=== PATIENT | female | born 1985 | race Caucasian/White ===

== ENCOUNTER 2025-04-27 16:57 | Emergency (ER) | payer MEDICAID, SELFPAY ==
[2025-04-27] VITALS (10 sets, daily range): BP systolic 104–141; BP diastolic 62–102; PULSE 85–102; RESP 12–24; TEMP 36.6–37; O2SAT 96–100; BMI 32.8
--- NOTE | 2025-04-27 17:41 | XR_ITS ---
Examination: CT abdomen with intravenous contrast CT pelvis with intravenous contrast 2-D coronal reconstructions 2-D sagittal reconstructions Date and time of exam:April 27, 20252054 hours INDICATIONS: Abdominal pain nausea vomiting today. CTDI: vol (mGy) 10.9 DLP: (mGycm) 61 Technique: Multiple axial sections of the abdomen and pelvis have been obtained. 64 slice high-resolution scanner used. 3 mm axial sections have been obtained, post intravenous injection of 370 60 cc 2-D sagittal coronal reconstructions Low-dose protocols, iodinated exposure control, adjustment MA be according to patient's size FINDINGS: No pericecal inflammatory change Gastric sutures No liver or splenic lesion Mucosa is thickened in the stomach No pancreatic mass No renal or ureteral calculi, no hydronephrosis Aorta normal size No bowel obstruction No diverticulitis No pelvic mass Contracted urinary bladder Moderate disc narrowing L5-S1 IMPRESSION: Gastritis pattern
[2025-04-27] MEDS: ONDANSETRON INJ 2 MG/ML INJ 2 ML 4 MG IVP (18:06)
[2025-04-27] MEDS: MORPHINE SULF INJ 10 MG/ML VIAL 4 MG IVP (18:07)
[2025-04-27] MEDS: SODIUM CHLORIDE 0.9% 1000 ML 1,000 ML 999 ML IV ×2 (18:09→21:12)
--- NOTE | 2025-04-27 18:46 | PC.NURSE ---
SPOKE TO PHARMACIST REQUESTING FOR PT'S PROMETHAZINE MED ORDER; PER PHARMACY, WILL RECONSTITUTE MEDICATION AND DELIVER IT SOON.''
[2025-04-27 18:53] LABS: Basophils % (Auto) 1 % (0-2.5); Eosinophils % (Auto) 0 % (0-10); Hemoglobin 13.5 g/dL (12.0-16.0); Immature Granulocytes % (Auto) 0 % (0-0); Immature Granulocytes Auto 0.01 Thou/mm3 (0.00-0.00); Lymphocytes # (Auto) 1.3 Thou/mm3 (1.0-4.8); Lymphocytes % (Auto) 17 % (10-50); Mean Corpuscular HGB Conc 35.5 g/dl (31.0-37.0); Mean Corpuscular Hemoglobin 28.4 pg (25.0-35.0); Mean Corpuscular Volume 80 fL (80-100); Monocytes # (Auto) 0.5 Thou/mm3 (0.0-0.8); Monocytes % (Auto) 6 % (0-12); Neutrophils # (Auto) 5.8 Thou/mm3 (1.8-7.7); Neutrophils % (Auto) 76 % (37-80); Nucleated Red Blood Cell % 0 /100 WBC (0); Platelet Count 231 Thou/mm3 (140-440); RDW Standard Deviation 38.1 fL (36.4-46.3); Red Blood Count 4.75 Miln/mm3 (4.00-5.20); White Blood Count 7.6 Thou/mm3 (3.6-11.0)
[2025-04-27 18:59] LABS: Prothrombin Time 11.4 Seconds (9.0-12.2)
[2025-04-27 19:03] LABS: Alanine Aminotransferase 16 U/L (10-49); Albumin, Serum 4.3 gm/dL (3.5-5.0); Albumin/Globulin Ratio 1.7 (1.2-2.2); Alkaline Phosphatase 84 U/L (46-116); Anion Gap 17 (7-16); BUN/Creatinine Ratio 9 Ratio (12-20); Bilirubin,Total 0.9 mg/dL (0.3-1.2); Blood Urea Nitrogen 7 mg/dL (9-23); Calcium 9.3 mg/dL (8.3-10.6); Calcium (Corrected) 9.3 mg/dL (8.5-10.1); Carbon Dioxide 21.1 mMol/L (20.0-31.0); Chloride 104 mMol/L (98-107); Creatinine (Component) 0.8 mg/dL (0.6-1.3); Estimated Creatinine Clearance 106.3 mL/min (>60); Globulin 2.5 gm/dL (2.3-3.5); Glucose 91 mg/dL (74-106); Lipase 32 U/L (12-53); Magnesium 1.9 mg/dL (1.6-2.6); Osmolality,Calculated 281 (275-295); Potassium 4.2 mMol/L (3.4-5.1); Sodium 142 mMol/L (136-145); Total Protein 6.8 gm/dL (5.7-8.2); eGFR > 60 See Note
[2025-04-27] MEDS: PROMETHAZINE INJ 12.5 MG in SODIUM CHLORIDE 0.9% 50 ML 2.5 MG IV (19:13)
[2025-04-27 19:18] LABS: HCG,Qualitative Serum Negative
[2025-04-27 21:06] LABS: Collection Type, Urine Clean Catch
[2025-04-27] MEDS: MORPHINE SULF INJ 10 MG/ML VIAL 5 MG IVP (21:11)
[2025-04-27 21:17] LABS: Bacteria,Urine Rare; Bilirubin,Urine Negative (Negative); Blood,Urine 3+ (Negative); Clarity,Urine Turbid (Clear/Hazy); Color,Urine Yellow (Lt Yel-Yel); Glucose, Urine Negative (Negative); Ketones,Urine 4+ (Negative); Leukocyte Esterase,Urine Positive (Negative); Nitrite,Urine Negative (Negative); PH,Urine 5.5 (5.0-7.0); Protein,Urine 1+ (Neg - Trace); RBC,Urine 4 /hpf (0-3); Specific Gravity,Urine 1.022 (1.001-1.035); Squamous Epithelial Cell,Urine 18 /hpf (0-5); Urobilinogen,Urine Negative mg/dL (0.0-1.0); WBC,Urine 56 /hpf (0-5)
[2025-04-27 22:12] LABS: Amphetamine/Methamp Scrn,U Negative (Negative); Barbiturate Screen,Urine Negative (Negative); Benzodiazepines Screen,Urine Negative (Negative); Benzoylecgonine Screen, Ur Negative (Negative); Fentanyl Screen,Urine Negative (Negative); Opiate Screen,Urine Positive (Negative); THC Screen,Urine Negative (Negative)
--- NOTE | 2025-04-27 22:18 | PD.EDABDPN ---
ED Abdominal Pain RME/HPI General Chief Complaint: Abdominal Pain Stated complaint: NAUSEA AND VOMITTING Time seen by provider: 04/27/25 17:49 Arrival date/time: 04/27/25 16:57 RME / HPI RME / HPI narrative: Dr. [facility] Main ED Evaluation: 39yp female with no significant past medical history presents to the ED for complaints of nausea and vomiting. Patient states she started having significant N/V this morning, reporting she has been unable to keep anything down all day. Patient denies any abdominal pain, fever, chills, dysuria or any other associated symptoms. NKA. Related Data Home Medications ?Medication ?Instructions ?Recorded ?Confirmed sertraline 100 mg tablet (Zoloft) 100 mg PO QAM #0 tabs 07/16/17 Previous Rx's ?Medication ?Instructions ?Recorded Hydrocodone/Acetaminophen * (NORCO 1 tab PO Q6H PRN PAIN #12 tabs 07/16/17 5/325 *) omeprazole 40 mg capsule,delayed 40 mg PO QDAY #30 caps 04/27/25 release ondansetron 4 mg disintegrating 4 mg PO Q8H PRN nausea and 04/27/25 tablet vomiting #14 tabs sucralfate 100 mg/mL oral 10 ml PO TID #200 mL 04/27/25 suspension (Carafate) Allergies Allergy/AdvReac Type Severity Reaction Status Date / Time NKA* Allergy Uncoded 04/27/25 17:21 Review of Systems Review of Systems Systems Reviewed: All systems reviewed, normal except as documented Past Medical History Past Medical History CARDIAC: Negative Cardiac Disorders, Hypercholesterolemia, Congestive Heart Failure or Hypertension RESPIRATORY: Negative Chronic Obstructive Pulmonary Disease (COPD) or Asthma GENITOURINARY: Negative Renal Disease ENDOCRINE: Negative Diabetes Mellitus Type 1 or Diabetes Mellitus Type 2 HEMATOLOGIC: Negative Sickle Cell Disease PSYCHO/SOCIAL: Positive Anxiety Family History FAMILY HISTORY: Positive Family Cancer (PT'S MOM SKIN CANCER) Surgical History SURGICAL: Positive Tubal Ligation Social History SMOKING STATUS: Never smoker ED Exam Narrative Physical exam: GENERAL APPEARANCE: alert and oriented x 4, well-developed, well-nourished, no acute distress VITALS: All vitals were reviewed and the pulse ox is 99% on room air, which is normal according to my interpretation. HEENT: Normocephalic, atraumatic; pupils equal, round, reactive to light; EOMI; mucous membranes pink, dry; oropharynx clear NECK: Supple LUNGS: CTABL; no wheezes, no rales, no rhonchi HEART: Regular rate, regular rhythm; normal S1, S2; no murmurs ABDOMEN: non distended; normal BS; soft, LUQ tenderness, no guarding, no rebound; no masses, no organomegaly, no hernia BACK: no CVA tenderness EXTREMITIES: atraumatic; no edema NEUROLOGIC: awake; alert and oriented x4; cranial nerves II-XII grossly intact; no focal sensory or motor deficits PSYCHIATRIC: appropriate mood and affect SKIN: warm, dry, normal color; no rashes Course Quality Measures none Orders Category Date Time Status CT Screening NOW Care 04/27/25 17:41 Active Mixer And Blender STAT Care 04/27/25 17:40 Active Continuous Pulse Oximetry STAT Care 04/27/25 17:40 Completed Insert IV STAT Care 04/27/25 17:40 Active NPO STAT Care 04/27/25 17:[address] abdomen pelvis w con Stat Exams 04/27/25 17:41 Completed CBC Stat Lab 04/27/25 18:12 Completed Comprehensive Metabolic Panel Stat Lab 04/27/25 18:12 Completed Drug Screen,Urine Stat Lab 04/27/25 20:55 Completed HCG,Qualitative Serum Stat Lab 04/27/25 18:12 Completed Lipase Stat Lab 04/27/25 18:12 Completed Magnesium Stat Lab 04/27/25 18:12 Completed Prothrombin Time with INR Stat Lab 04/27/25 18:12 Completed Urinalysis Stat Lab 04/27/25 20:55 Completed Lidocaine 2% Viscous [Xylocaine 2% Viscous] Med 04/27/25 22:19 Discontinued 15 ml PO X1 ONE Metoclopramide Inj [Reglan Inj] Med 04/27/25 22:18 Discontinued 10 mg IVP X1 ONE Morphine Inj Med 04/27/25 17:40 Discontinued 4 mg IVP X1 ONE Morphine Inj Med 04/27/25 20:51 Discontinued 5 mg IVP X1 ONE Ondansetron Inj [Zofran Inj] Med 04/27/25 17:40 Active 4 mg IVP Q1H PRN Pantoprazole Inj [Protonix Inj] Med 04/27/25 22:18 Discontinued 40 mg IVP X1 ONE Promethazine Inj [Phenergan Inj] 12.5 mg Med 04/27/25 18:39 Discontinued Sodium Chloride 0.9% [Ns] 50 ml IV X1 Sodium Chloride 0.9% 1000 ml [Ns] 1,000 ml Med 04/27/25 17:40 Discontinued IV 999 mls/hr Sodium Chloride 0.9% 1000 ml [Ns] 1,000 ml Med 04/27/25 20:50 Discontinued IV 999 mls/hr Sucralfate Susp [Carafate Susp] Med 04/27/25 22:19 Discontinued 1 gm PO X1 ONE mg Hyd/Al Hyd/Jacquelin Susp [Maalox Susp] Med 04/27/25 22:19 Discontinued 30 ml PO X1 ONE Reevaluation(s) Reevaluation #1: Patient states she feels significantly better after receiving meds. Patient notes she takes omeprazole 20mg daily. Patient is stable to be discharged home. Time: 23:20 Vital Signs Vital signs: Vital Signs Temperature 97.9 F 04/27/25 17:04 Pulse Rate 101 H 04/27/25 17:04 Respiratory Rate 18 04/27/25 17:04 Blood Pressure 138/85 H 04/27/25 17:04 Pulse Oximetry (%) 100 04/27/25 17:04 Oxygen Delivery Method Room Air 04/27/25 17:04 Abdominal Pain MDM Patient data External records reviewed:: [facility] previous records (Per chart review, patient has no previous ED visits or admissions to this facility.) Clinical information provided by:: patient Social determinants that could affect healthcare access:: none Patient has the following chronic illnesses:: none How is presenting disease/condition affected by chronic disease/condition?: no chronic disease Evaluation data The following diagnostics were reviewed and interpreted by me:: lab results and radiology exam(s) Lab and/or radiology exams considered but not ordered:: none Interpretation Summary: CBC normal, Anion Gap 17, Lipase normal, HCG negative, UDS positive for opiates, UA negative for UTI. [facility] Report Signed Patient: BONNIE SEVERINO [facility]. Record#: [id number] Birthdate: 1985 Age/Sex: 39 / F Location: [facility] Attending Dr: Ordering Physician: Maynor Epstein MD Date of Service: 04/27/25 Procedure(s): CT abdomen pelvis w con Accession Number(s): [id number] cc: Maynor Epstein MD; Tato Brennan MD; NO PRIMARY/FAMILY,PHYSICIAN~ Examination: CT abdomen with intravenous contrast CT pelvis with intravenous contrast 2-D coronal reconstructions 2-D sagittal reconstructions Date and time of exam:April 27, 20252054 hours INDICATIONS: Abdominal pain nausea vomiting today. CTDI: vol (mGy) 10.9 DLP: (mGycm) 61 Technique: Multiple axial sections of the abdomen and pelvis have been obtained. 64 slice high-resolution scanner used. 3 mm axial sections have been obtained, post intravenous injection of 370 60 cc 2-D sagittal coronal reconstructions Low-dose protocols, iodinated exposure control, adjustment MA be according to patient's size FINDINGS: No pericecal inflammatory change Gastric sutures No liver or splenic lesion Mucosa is thickened in the stomach No pancreatic mass No renal or ureteral calculi, no hydronephrosis Aorta normal size No bowel obstruction No diverticulitis No pelvic mass Contracted urinary bladder Moderate disc narrowing L5-S1 IMPRESSION: Gastritis pattern Dictated By: Tato Brennan MD Signed By: <Electronically signed by Tato Brennan MD in [place]> 04/27/252121 Medications / Prescriptions Medications or Prescriptions considered but not ordered:: none Medication administrations:: Medication Administration History Ondansetron HCl (Ondansetron Inj 2 Mg/Ml Inj 2 Ml) 4 mg IVP Q1H PRN PRN Reason: PERSISTENT NAUSEA OR VOMITING Last Admin: 04/27/25 18:06 Dose: 4 mg Documented By: KINGSTON Discontinued Medications Al Hydrox/Mg Hydrox/Simethicone (Mg Hyd/Al Hyd/Jacquelin (Maalox Reg) Susp 30 Ml Udc) 30 ml PO X1 ONE Stop: 04/27/25 22:20 Last Admin: 04/27/25 22:45 Dose: 30 ml Documented By: BURKE Sodium Chloride (Ns) 1,000 mls @ 999 mls/hr IV .Q1H1M ONE Stop: 04/27/25 18:40 Last Infusion: 04/27/25 18:55 Dose: Infused Documented By: Admin: 04/27/25 18:09 Dose: 999 mls/hr Documented By: KINGSTON Promethazine HCl 12.5 mg/ (Sodium Chloride) 50.5 mls @ 2.5 mls/min IV X1 ONE Stop: 04/27/25 18:59 Last Infusion: 04/27/25 20:35 Dose: Infused Documented By: Admin: 04/27/25 19:13 Dose: 2.5 mls/min Documented By: BURKE Sodium Chloride (Ns) 1,000 mls @ 999 mls/hr IV .Q1H1M ONE Stop: 04/27/25 21:50 Last Infusion: 04/27/25 22:29 Dose: Infused Documented By: Admin: 04/27/25 21:12 Dose: 999 mls/hr Documented By: BURKE Lidocaine HCl (Lidocaine Viscous 2% 15 Ml Udc) 15 ml PO X1 ONE Stop: 04/27/25 22:20 Last Admin: 04/27/25 22:45 Dose: 15 ml Documented By: BURKE Metoclopramide HCl (Metoclopramide Inj 5 Mg/Ml Vial 2 Ml) 10 mg IVP X1 ONE; Protocol Stop: 04/27/25 22:19 Last Admin: 04/27/25 22:46 Dose: 10 mg Documented By: BURKE Morphine Sulfate (Morphine Sulf Inj 10 Mg/Ml Vial) 4 mg IVP X1 ONE Stop: 04/27/25 19:40 Last Admin: 04/27/25 18:07 Dose: 4 mg Documented By: KINGSTON Morphine Sulfate (Morphine Sulf Inj 10 Mg/Ml Vial) 5 mg IVP X1 ONE Stop: 04/27/25 20:52 Last Admin: 04/27/25 21:11 Dose: 5 mg Documented By: BURKE Pantoprazole Sodium (Pantoprazole Inj 40 Mg Vial) 40 mg IVP X1 ONE Stop: 04/27/25 22:19 Last Admin: 04/27/25 22:45 Dose: 40 mg Documented By: BURKE Sucralfate (Sucralfate Susp 1 Gm/10 Ml Udc) 1 gm PO X1 ONE Stop: 04/27/25 22:20 see above Consultations Consultation(s) initiated? (list below): No Diagnosis Differential diagnosis abdominal pain: acute appendicitis, gastroenteritis, pancreatitis and other (gastritis) Most likely diagnosis given after review of the tests above:: see clinical impression below Admission Indicated Admission indicated?: not indicated Admission Request Was there a request for admission?: No Disposition Plan Disposition Plan: Discharge Discharge Attestation Discharge Attestation: The patient and all family members were given an opportunity to ask questions and understood the discharge instructions. Discharge instructions specifically effects, indications for sooner follow up or return to the emergency department, and the expected course of current diagnosis. Patient condition: Stable Discharge Plan Plan Patient Disposition: HOME (Self Care) Prescriptions/Referrals Prescriptions/Med Rec: New sucralfate [Carafate] 100 mg/mL suspension 10 ml PO TID Qty: 200 0RF omeprazole 40 mg capsule,delayed release(DR/EC) 40 mg PO QDAY Qty: 30 0RF ondansetron 4 mg tablet,disintegrating 4 mg PO Q8H PRN (Reason: nausea and vomiting) Qty: 14 0RF No Action sertraline [Zoloft] 100 MG tablet 100 mg PO QAM Qty: 0 Hydrocodone/Acetaminophen * (NORCO 5/325 *) 1 TAB tablet 1 tab PO Q6H PRN (Reason: PAIN) Qty: 12 0RF Referrals: No Primary/Family,Physician [Primary Care Provider] - In 1 week Problem List Clinical Impression: Gastritis Patient/Caregiver Discharge Instructions Education Materials: ED Gastritis (Adult) Additional Instructions: Increase omeprazole to 40 mg daily Print Language: Japanese Stand Alone Forms: [facility] Award Info., Patient Portal Info Letter
[2025-04-27] MEDS: LIDOCAINE VISCOUS 2% 15 ML UDC PO (22:45)
[2025-04-27] MEDS: MG HYD/AL HYD/SIME (Maalox Reg) SUSP 30 ML UDC PO (22:45)
[2025-04-27] MEDS: PANTOPRAZOLE INJ 40 MG VIAL IVP (22:45)
[2025-04-27] MEDS: METOCLOPRAMIDE INJ 5 MG/ML VIAL 2 ML 10 MG IVP (22:46)
--- NOTE | 2025-04-27 23:27 | PC.NURSE ---
around 2029, cleaned pt. diaper was saturated with urine. pt cleanded.
--- NOTE | 2025-04-27 23:45 | PC.NURSE ---
GI coctail took pain away. pt feeling much better. nausea has improved greatly.
== END 2025-04-27 23:48 | disposition home or self-care (01) ==
PROVIDERS: Family Medicine; Emergency Provider Emergency Medicine
DX: K29.70 Gastritis, unspecified, without bleeding (principal)
CPT/HCPCS: 36415; 74177; 80053; 80307; 81001; 83690; 83735; 84703; 85025; 85610; 96361; 96365; 96375; 96376; 99285; A4649; J2270; J2405; J2470; J2550; J2765; J3490; J7030; Q9967; A9270

== ENCOUNTER 2025-06-09 13:39 | Emergency (ER) | payer MEDICAID, SELFPAY ==
[2025-06-09 14:20] VITALS: BP 137/89; PULSE 90; RESP 20; TEMP 36.7; O2SAT 98
--- NOTE | 2025-06-09 14:35 | XR_ITS ---
Examination: CT abdomen with intravenous contrast CT pelvis with intravenous contrast 2-D coronal reconstructions 2-D sagittal reconstructions Date and time of exam:June 09, 2025 1926 hours Comparison April 27, 2025 INDICATION: Abdominal pain and vomiting beginning 2 days ago. CTDI: vol (mGy) 20 355 DLP: (mGycm) 744 Technique: Multiple axial sections of the abdomen and pelvis have been obtained. 64 slice high-resolution scanner used. 3 mm axial sections have been obtained, post intravenous injection 60 cc Isovue 370 2-D sagittal, coronal reconstructions obtained. Low dose protocols were performed. One or more of the following dose reduction techniques were used; automated exposure control, adjustment of the mA and/or KV according to patient size, use of iterative reconstruction technique. Findings: No focal liver or splenic lesions Gastric sutures No pancreatic or adrenal mass 8mm benign posterior right renal angiomyolipoma Aorta normal size No bowel obstruction No bladder mass or bladder calculi The osseous structures are intact IMPRESSION: No acute process in the abdomen or pelvis
--- NOTE | 2025-06-09 14:38 | PD.EDABDPN ---
ED Abdominal Pain RME/HPI General Chief Complaint: Abdominal Pain Stated complaint: ABD PAIN, SEVERE N/V, UNABLE TO KEEP FOOD DOWN Time seen by provider: 06/09/25 14:40 Arrival date/time: 06/09/25 13:39 Limitations: no limitations RME / HPI RME / HPI narrative: 1 day history of nausea, vomiting, and abdominal pain. Seen here about 1 month ago for similar symptoms. She has no fevers or chills. Denies any new sick contacts. No recent antibiotic use. She has no urinary symptoms. She denies any chronic disease including diabetes. She has no other acute complaints. Related Data Home Medications ?Medication ?Instructions ?Recorded ?Confirmed sertraline 100 mg tablet (Zoloft) 100 mg PO QAM #0 tabs 07/16/17 Previous Rx's ?Medication ?Instructions ?Recorded Hydrocodone/Acetaminophen * (NORCO 1 tab PO Q6H PRN PAIN #12 tabs 07/16/17 5/325 *) omeprazole 40 mg capsule,delayed 40 mg PO QDAY #30 caps 04/27/25 release ondansetron 4 mg disintegrating 4 mg PO Q8H PRN nausea and 04/27/25 tablet vomiting #14 tabs sucralfate 100 mg/mL oral 10 ml PO TID #200 mL 04/27/25 suspension (Carafate) dicyclomine 20 mg tablet 20 mg PO TID #20 tabs 06/09/25 ondansetron 4 mg disintegrating 4 mg PO QDAY PRN nausea and 06/09/25 tablet vomiting 3 days #10 tabs Allergies Allergy/AdvReac Type Severity Reaction Status Date / Time No Known Allergies Allergy Verified 06/09/25 13:43 Review of Systems Review of Systems Systems Reviewed: All systems reviewed, normal except as documented ED Exam General Limitations: Present no limitations General appearance: Present alert Head Head exam: Present atraumatic Eye Eye exam: Present normal appearance, PERRL and EOMI ENT ENT exam: Present normal exam, normal oropharynx and mucous membranes moist Neck Neck exam: Present normal inspection, full ROM and trachea midline Chest Chest inspection: Present normal inspection and symmetric chest wall rise Respiratory Respiratory exam: Present normal lung sounds bilaterally Cardiovascular Cardiovascular exam: Present regular rate, normal rhythm and normal heart sounds Abdominal Exam Abdominal exam: Present distention; Absent tenderness, guarding, rebound or rigidity Extremities Exam Extremities exam: Present normal inspection and full ROM Back Exam Back exam: Present normal inspection and full ROM Neurological Exam Neurological exam: Present alert, oriented X3 and CN II-XII intact Psychiatric Psychiatric exam: Present normal affect and normal mood Skin Skin exam: Present warm, dry, intact and normal color Course Quality Measures none Orders Category Date Time Status CT Screening NOW Care 06/09/25 14:[address] abdomen pelvis w con Stat Exams 06/09/25 14:35 Completed CBC Stat Lab 06/09/25 14:48 Completed CMP [Comprehensive Metabolic Panel] Stat Lab 06/09/25 14:48 Completed HCG,Qualitative Serum Stat Lab 06/09/25 14:48 Completed Lactic Acid [Lactate (Lactic Acid)] Stat Lab 06/09/25 14:48 Completed Lipase Stat Lab 06/09/25 14:48 Completed UA, C/S IF [Urinalysis, C/S if Indicated] Stat Lab 06/09/25 15:30 Completed Metoclopramide Inj [Reglan Inj] Med 06/09/25 14:35 Discontinued 10 mg IVP X1 ONE Metoclopramide Inj [Reglan Inj] Med 06/09/25 21:19 Once 10 mg IVP X1 ONE Pantoprazole Inj [Protonix Inj] Med 06/09/25 14:37 Discontinued 40 mg IVP X1 ONE Sodium Chloride 0.9% 1000 ml [Ns] 1,000 ml Med 06/09/25 14:35 Discontinued IV 999 mls/hr fentaNYL INJ [Sublimaze Inj] Med 06/09/25 14:37 Discontinued 25 mcg IVP X1 ONE Vital Signs Vital signs: Vital Signs Temperature 98.1 F 06/09/25 14:20 Pulse Rate 90 06/09/25 14:20 Respiratory Rate 20 06/09/25 14:20 Blood Pressure 137/89 H 06/09/25 14:20 Pulse Oximetry (%) 98 06/09/25 14:20 Oxygen Delivery Method Room Air 06/09/25 14:20 Abdominal Pain MDM MDM Narrative MDM Narrative:: 1 day history of nausea, vomiting, and abdominal pain. Seen here about 1 month ago for similar symptoms. She has no fevers or chills. Denies any new sick contacts. No recent antibiotic use. She has no urinary symptoms. She denies any chronic disease including diabetes. She has no other acute complaints. On exam, patient is nontoxic-appearing and in no visible signs of distress. She initially received a dose of Reglan, IV fluids, and workup was initiated. She has a very mild leukocytosis of 12.4 K, hemoglobin hematocrit are stable. Her liver enzymes are unremarkable. Lipase is unremarkable. UA is unremarkable. CT abdomen pelvis reveals no acute intra-abdominal abnormalities. Patient states that her symptoms have improved, she has had no emesis during ER course however at the time of discharge, she states her nausea was starting to return. She will be given a dose of Reglan again. She will be discharged with a prescription of Zofran and Bentyl. She has to follow-up with her primary doctor. Return here as needed for any worsening or emergent changes. Patient data External records reviewed:: None Clinical information provided by:: patient Social determinants that could affect healthcare access:: none Patient has the following chronic illnesses:: n/a How is presenting disease/condition affected by chronic disease/condition?: uneffected by Evaluation data The following diagnostics were reviewed and interpreted by me:: lab results (No significant leukocytosis or anemia. No evidence of hepatitis or pancreatitis.) and radiology exam(s) (CT of abdomen pelvis reveals no acute intra-abdominal abnormality.) Lab and/or radiology exams considered but not ordered:: n/a Interpretation Summary: Acute gastroenteritis Medications / Prescriptions Medications or Prescriptions considered but not ordered:: n/a Medication administrations:: Medication Administration History Discontinued Medications Fentanyl Citrate (Fentanyl Cit Inj 50 Mcg/Ml Amp 2ml) 25 mcg IVP X1 ONE Stop: 06/09/25 14:38 Last Admin: 06/09/25 18:57 Dose: 25 mcg Documented By: KRISTIN Sodium Chloride (Ns) 1,000 mls @ 999 mls/hr IV .Q1H1M ONE Stop: 06/09/25 15:35 Last Infusion: 06/09/25 20:21 Dose: Infused Documented By: Admin: 06/09/25 18:58 Dose: 999 mls/hr Documented By: KRISTIN Metoclopramide HCl (Metoclopramide Inj 5 Mg/Ml Vial 2 Ml) 10 mg IVP X1 ONE; Protocol Stop: 06/09/25 14:36 Last Admin: 06/09/25 18:57 Dose: 10 mg Documented By: KRISTIN Pantoprazole Sodium (Pantoprazole Inj 40 Mg Vial) 40 mg IVP X1 ONE Stop: 06/09/25 14:38 Last Admin: 06/09/25 18:57 Dose: 40 mg Documented By: VL See above Consultations Consultation(s) initiated? (list below): No Diagnosis Differential diagnosis abdominal pain: abdominal pain, calculus of kidney, gastroenteritis, pancreatitis and small bowel obstruction Most likely diagnosis given after review of the tests above:: Acute gastroenteritis Admission Indicated Admission indicated?: not indicated Admission Request Was there a request for admission?: No Disposition Plan Disposition Plan: Discharge Discharge Attestation Discharge Attestation: The patient and all family members were given an opportunity to ask questions and understood the discharge instructions. Discharge instructions specifically effects, indications for sooner follow up or return to the emergency department, and the expected course of current diagnosis. Patient condition: Stable Discharge Plan Plan Patient Disposition: HOME (Self Care) Prescriptions/Referrals Prescriptions/Med Rec: New ondansetron 4 mg tablet,disintegrating 4 mg PO QDAY PRN (Reason: nausea and vomiting) 3 Days Qty: 10 0RF dicyclomine 20 mg tablet 20 mg PO TID Qty: 20 0RF No Action sertraline [Zoloft] 100 MG tablet 100 mg PO QAM Qty: 0 Hydrocodone/Acetaminophen * (NORCO 5/325 *) 1 TAB tablet 1 tab PO Q6H PRN (Reason: PAIN) Qty: 12 0RF sucralfate [Carafate] 100 mg/mL suspension 10 ml PO TID Qty: 200 0RF omeprazole 40 mg capsule,delayed release(DR/EC) 40 mg PO QDAY Qty: 30 0RF ondansetron 4 mg tablet,disintegrating 4 mg PO Q8H PRN (Reason: nausea and vomiting) Qty: 14 0RF Referrals: No Primary/Family,Physician [Primary Care Provider] - In 1 week Problem List Clinical Impression: Gastroenteritis Patient/Caregiver Discharge Instructions Education Materials: ED Gastroenteritis, Viral (Adult) Additional Instructions: - Maintain oral hydration use the provided medications for symptomatic relief. - Initiate a bland diet until your symptoms resolved. - Contact your primary clinic to schedule close follow-up appointment. - Return to the emergency room as needed for any worsening or emergent changes. Print Language: Nepali Stand Alone Forms: [facility] Award Info., Patient Portal Info Letter
[2025-06-09 15:06] LABS: Lactate (Lactic Acid) 1.1 mMol/L (0.4-2.0)
[2025-06-09 15:09] LABS: Basophils # (Auto) 0.0 Thou/mm3 (0.0-0.2); Basophils % (Auto) 0 % (0-2.5); Eosinophils # (Auto) 0.0 Thou/mm3 (0.0-0.5); Eosinophils % (Auto) 0 % (0-10); Hematocrit 40.4 % (36.0-46.0); Hemoglobin 14.1 g/dL (12.0-16.0); Immature Granulocytes Auto 0.04 Thou/mm3 (0.00-0.00); Lymphocytes # (Auto) 1.8 Thou/mm3 (1.0-4.8); Lymphocytes % (Auto) 15 % (10-50); Mean Corpuscular HGB Conc 34.9 g/dl (31.0-37.0); Mean Corpuscular Hemoglobin 28.8 pg (25.0-35.0); Mean Corpuscular Volume 82 fL (80-100); Monocytes # (Auto) 0.8 Thou/mm3 (0.0-0.8); Monocytes % (Auto) 6 % (0-12); Neutrophils # (Auto) 9.8 Thou/mm3 (1.8-7.7); Neutrophils % (Auto) 79 % (37-80); Nucleated Red Blood Cell # 0.00 Thou/mm3 (0.00-0.00); Nucleated Red Blood Cell % 0 /100 WBC (0); Platelet Count 302 Thou/mm3 (140-440); RDW Standard Deviation 38.3 fL (36.4-46.3); Red Blood Count 4.90 Miln/mm3 (4.00-5.20); White Blood Count 12.4 Thou/mm3 (3.6-11.0)
[2025-06-09 15:24] LABS: HCG,Qualitative Serum Negative
[2025-06-09 15:28] LABS: Alanine Aminotransferase 16 U/L (10-49); Albumin, Serum 4.4 gm/dL (3.5-5.0); Albumin/Globulin Ratio 1.6 (1.2-2.2); Alkaline Phosphatase 80 U/L (46-116); Anion Gap 11 (7-16); Aspartate Amino Transferase 27 U/L (0-34); BUN/Creatinine Ratio 9 Ratio (12-20); Bilirubin,Total 1.0 mg/dL (0.3-1.2); Blood Urea Nitrogen 7 mg/dL (9-23); Calcium 9.3 mg/dL (8.3-10.6); Calcium (Corrected) 9.3 mg/dL (8.5-10.1); Carbon Dioxide 26.0 mMol/L (20.0-31.0); Chloride 105 mMol/L (98-107); Creatinine (Component) 0.8 mg/dL (0.6-1.3); Estimated Creatinine Clearance 101.6 mL/min (>60); Globulin 2.7 gm/dL (2.3-3.5); Glucose 93 mg/dL (74-106); Lipase 32 U/L (12-53); Osmolality,Calculated 281 (275-295); Potassium 3.7 mMol/L (3.4-5.1); Sodium 142 mMol/L (136-145); Total Protein 7.1 gm/dL (5.7-8.2); eGFR > 60 See Note
[2025-06-09 16:14] LABS: Collection Type, Urine Voided; RBC,Urine 0 /hpf (0-3); WBC,Urine 0 /hpf (0-5)
[2025-06-09 16:17] LABS: Bilirubin,Urine 2+ (Negative); Blood,Urine Negative (Negative); Clarity,Urine Clear (Clear/Hazy); Color,Urine Drk Yellow (Lt Yel-Yel); Culture Indicated,Urine Not Indicated; Glucose, Urine Negative (Negative); Ketones,Urine 3+ (Negative); Leukocyte Esterase,Urine Negative (Negative); Nitrite,Urine Negative (Negative); PH,Urine 6.0 (5.0-7.0); Protein,Urine 2+ (Neg - Trace); Specific Gravity,Urine >= 1.030 (1.001-1.035); Urobilinogen,Urine 1.0 mg/dL (0.0-1.0)
[2025-06-09 16:29] LABS: Squamous Epithelial Cell,Urine 3 /hpf (0-5)
[2025-06-09 18:37] VITALS: BP 131/91; PULSE 87; RESP 18; TEMP 36.7; O2SAT 99
[2025-06-09] MEDS: METOCLOPRAMIDE INJ 5 MG/ML VIAL 2 ML 10 MG IVP ×2 (18:57→21:35)
[2025-06-09] MEDS: fentaNYL CIT INJ 50 mCg/ML AMP 2ML 25 MCG IVP (18:57)
[2025-06-09] MEDS: SODIUM CHLORIDE 0.9% 1000 ML 1,000 ML 999 ML IV (18:58)
[2025-06-09 21:36] VITALS: BP 131/76; PULSE 80; RESP 18; TEMP 36.8; O2SAT 98
== END 2025-06-09 21:37 | disposition home or self-care (01) ==
PROVIDERS: Emergency Provider Physician Assistant Medical
DX: K52.9 Noninfective gastroenteritis and colitis, unspecified (principal)
CPT/HCPCS: 36415; 74177; 80053; 81001; 83605; 83690; 84703; 85025; 96361; 96374; 96375; 96376; 99283; A4649; J2470; J2765; J3010; J7030; Q9967